=== PATIENT | male | born 1995 | race Caucasian/White ===

== ENCOUNTER 2025-02-10 09:25 | Inpatient (IN) | payer OTHER ==
[~2025-02-10] VITALS: Ht 177.8 cm; Wt 64.0 kg
[2025-02-10] MEDS ORDERED: VANCOMYCIN 1GM/WATER(PEG/NADA) 200 ML IV ONE (12:30)
[2025-02-10] MEDS ORDERED: IOHEXOL 350 MG/ML 100 ML VIAL ONE (13:06)
[2025-02-10] MEDS ORDERED: SODIUM CHLORIDE 0.9% 100 ML ONE (13:07)
[2025-02-10] MEDS ORDERED: ACETAMINOPHEN 325 MG TABLET PO PRN (13:15)
[2025-02-10] MEDS ORDERED: OxyCODONE HCL/ACETAMINOPHEN 5-325 MG TABLET PO PRN (13:15)
[2025-02-10] MEDS ORDERED: ONDANSETRON HCL 4 MG/2 ML VIAL IVP PRN (13:15)
[2025-02-10 13:17] LABS: BASOPHILS % (AUTO) 0.2 % (0.0-2.0); HEMATOCRIT 40.9 % (41-53); HEMOGLOBIN 13.5 g/dL (13.5-17.5); LYMPHOCYTES # (AUTO) 1.8 K/uL (1.0-4.8); LYMPHOCYTES % (AUTO) 23.4 % (22.0-44.0); MEAN CORPUSCULAR HEMOGLOBIN 28.7 pg (26.0-34.0); MEAN CORPUSCULAR HGB CONC 33.1 G/dL (31.0-37.0); MEAN CORPUSCULAR VOLUME 87 fL (80-100); MONOCYTES # (AUTO) 0.5 K/uL (0.1-1.0); MONOCYTES % (AUTO) 6.6 % (2.0-9.0); NEUTROPHILS # (AUTO) 5.2 K/uL (1.8-7.7); NEUTROPHILS % (AUTO) 68.8 % (40.0-70.0); PLATELET COUNT (AUTO) 313 K/uL (150-450); RED CELL DISTRIBUTION WIDTH 16.8 % (11.5-14.5); WHITE BLOOD COUNT (AUTO) 7.6 K/uL (4.5-11.0)
[2025-02-10 13:24] LABS: ANION GAP 2 mmol/L (8-16); CALCIUM, TOTAL 9.3 mg/dL (8.8-10.5); CARBON DIOXIDE 32 mmol/L (22-29); CHLORIDE 101 mmol/L (98-107); CREATININE 0.92 mg/dL (0.60-1.30); GLOMERULAR FILTR. RATE CALC > 60 mL/min (>60); GLUCOSE,RANDOM 86 mg/dL (70-110); POTASSIUM 3.9 mmol/L (3.5-5.1); SODIUM SERUM 135 mmol/L (136-145); UREA NITROGEN, BLOOD 13 mg/dL (7-18)
[2025-02-10 13:34] LABS: ALBUMIN 3.5 g/dL (3.4-5.0); BILIRUBIN,DIRECT 0.2 mg/dL (0.00-0.20); BILIRUBIN,TOTAL 0.6 mg/dL (0.1-1.0); TOTAL PROTEIN, SERUM 10.7 g/dL (6.4-8.2)
[2025-02-10 15:37] VITALS: BP 87/66; PULSE 192; RESP 19; TEMP 98.2; O2SAT 98
[2025-02-10 15:47] VITALS: BP 107/68; PULSE 88; RESP 18; TEMP 98.2
[2025-02-10] MEDS: HEPARIN SODIUM,PORCINE 5,000 UNITS/ML VIAL SQ SCH (16:00)
[2025-02-10 20:33] VITALS: BP 98/65; PULSE 90; RESP 18; TEMP 98.4; O2SAT 97
[2025-02-10] MEDS: DOCUSATE SODIUM 100 MG CAPSULE PO SCH (21:46)
[2025-02-10] MEDS: FAMOTIDINE 20 MG TABLET PO SCH (21:46)
[2025-02-11 05:10] VITALS: BP 105/71; PULSE 89; RESP 18; TEMP 98.1; O2SAT 97
[2025-02-11 06:18] VITALS: BP 119/78; PULSE 60; RESP 18; TEMP 97.7; O2SAT 97
[2025-02-11 07:30] VITALS: BP 102/66; PULSE 80; RESP 20; TEMP 98.6; O2SAT 99
[2025-02-11] MEDS: BICTEGRAV/EMTRICIT/TENOFOV ALA 50-200-25 MG TABLET PO SCH (07:58)
[2025-02-11 19:56] VITALS: BP 96/55; PULSE 96; RESP 18; TEMP 98.4; O2SAT 96
[2025-02-11] MEDS: ZOLPIDEM TARTRATE 5 MG TABLET PO PRN (20:37)
[2025-02-11 20:47] VITALS: BP 98/73; PULSE 97; RESP 17; TEMP 97.9; O2SAT 97
[2025-02-12 04:53] VITALS: BP 97/77; PULSE 102; RESP 18; TEMP 98.4; O2SAT 99
[2025-02-12 08:34] VITALS: BP 101/66; PULSE 111; RESP 20; TEMP 98.2; O2SAT 98
[2025-02-12] MEDS ORDERED: MEDRONATE TC99M/UD<30 MCL ISOTOPE 1 EA INJ INJ ONE (09:20)
[2025-02-12 19:30] VITALS: BP 96/58; PULSE 96; RESP 18; TEMP 98.8; O2SAT 98
[2025-02-13 04:48] VITALS: BP 101/70; PULSE 95; RESP 18; TEMP 98.1; O2SAT 97
[2025-02-13 08:37] VITALS: BP 105/63; PULSE 90; RESP 18; TEMP 98; O2SAT 98
[2025-02-13] MEDS ORDERED: ACET-2247 PO (11:43)
[2025-02-13] MEDS ORDERED: BICT1TAB PO (11:44)
== END 2025-02-13 17:44 | DRG 376 ==
LOC: EMS 09:25 → EDH 13:05 → 6S 15:33
PROVIDERS: ADMIT Internal Medicine; ATTEND Internal Medicine
DX: C18.9 Malignant neoplasm of colon, unspecified (principal); M89.8X8 Other specified disorders of bone, other site; Z87.891 Personal history of nicotine dependence; Z79.899 Other long term (current) drug therapy; Z92.21 Personal history of antineoplastic chemotherapy
CPT/HCPCS: 71260; 72193; 74160; 78320; 80048; 80076; 83690; 85025; 99285; A9503; J1644; J7050